=== PATIENT | female | born 1975 | race African-American/Black ===

== ENCOUNTER 2021-06-15 09:22 | Inpatient (IN) | payer OTHER ==
[~2021-06-15] VITALS: Ht 149.9 cm; Wt 64.4 kg
[2021-06-15 10:32] LABS: BASOPHILS % 0.4 % (0.0-2.0); EOSINOPHILS % 0.6 % (0.0-5.0); HEMATOCRIT. 40.9 % (36.0-48.0); HEMOGLOBIN. 14.1 g/dL (12.0-16.0); LYMPHOCYTES % 29.5 % (20.0-50.0); MEAN CORPUSCULAR HEMOGLOBIN 31.1 pg (28.0-32.0); MEAN CORPUSCULAR VOLUME 89.8 fL (81.0-99.0); MEAN PLATELET VOLUME 7.6 fl (7.4-10.4); MONOCYTES % 6.7 % (2.0-8.0); NEUTROPHILS % 62.8 % (40.0-76.0); PLATELET 267 x1000/uL (130-400); RED BLOOD CELL COUNT 4.55 mill/uL (4.2-5.4); RED CELL DISTRIBUTION WIDTH 12.6 % (11.6-14.6)
[2021-06-15 10:33] LABS: CLARITY URINE CLOUDY (CLEAR); COLOR URINE YELLOW (YELLOW); KETONES URINE NEGATIVE (NEGATIVE); LEUKOCYTE ESTERASE URINE NEGATIVE (NEGATIVE); NITRITE URINE NEGATIVE (NEGATIVE); OCCULT BLOOD URINE NEGATIVE (NEGATIVE); PROTEIN URINE NEGATIVE (NEGATIVE); SPECIFIC GRAVITY URINE 1.005 (1.005-1.030); UROBILINOGEN URINE 0.2 E.U./dL (0.2-1.0)
[2021-06-15 10:41] LABS: CHLORIDE 109 mEq/L (98-107)
[2021-06-15 10:45] LABS: ETHANOL BLOOD < 10 mg/dL
[2021-06-15 10:58] LABS: *AMPHETAMINES SCREEN URINE NEGATIVE (NEGATIVE); *BARBITURATES SCREEN URINE NEGATIVE (NEGATIVE); *BENZODIAZEPINES SCREEN URINE NEGATIVE (NEGATIVE); *COCAINE SCREEN URINE NEGATIVE (NEGATIVE); CANNABINOID URINE SCREEN NEGATIVE (NEGATIVE)
[2021-06-15 10:59] LABS: METHADONE URINE SCREEN NEGATIVE (NEGATIVE); OPIATES URINE SCREEN NEGATIVE (NEGATIVE); PHENCYCLIDINE URINE SCREEN NEGATIVE (NEGATIVE)
[2021-06-15] MEDS ORDERED: ASPIRIN 325MG EC TABLET PO ONE (11:30)
[2021-06-15] MEDS ORDERED: IPRATROPIUM/ALBUTEROL 0.5-3(2.5)MG/3ML NEB HHN PRN (12:00)
[2021-06-15] MEDS ORDERED: GUAIFENESIN 200MG/10ML SUGAR FREE UDC PO PRN (12:00)
[2021-06-15] MEDS ORDERED: CLONIDINE 0.1MG TABLET PO PRN (12:00)
[2021-06-15] MEDS ORDERED: ONDANSETRON HCL 4MG/2ML INJ IV PRN (12:00)
[2021-06-15] MEDS ORDERED: DOCUSATE SODIUM 100MG CAPSULE PO PRN (12:00)
[2021-06-15 13:44] LABS: FOLIC ACID (FOLATE) SERUM 18.7 ng/mL (>5.38)
[2021-06-15 15:19] VITALS: BP 113/59
[2021-06-15 15:40] VITALS: BP 110/71
[2021-06-15] MEDS: ENOXAPARIN 40MG/0.4ML SYR SUBCUT SCH (15:57)
[2021-06-15] MEDS: ACETAMINOPHEN 325MG TABLET PO PRN ×2 (15:57→22:05)
[2021-06-15] MEDS: CLOPIDOGREL 75MG TABLET PO SCH (15:59)
[2021-06-15] MEDS ORDERED: PNEUMOCOCCAL 23-VAL P-SAC VAC 0.5 ML IM ONE (17:00)
[2021-06-15 20:00] VITALS: BP 114/68
[2021-06-15] MEDS ORDERED: ATORVASTATIN CALCIUM 40MG TABLET PO SCH (21:00)
[2021-06-16] VITALS: BP 112/65
[2021-06-16 04:00] VITALS: BP 110/67
[2021-06-16 07:46] VITALS: BP 115/68
[2021-06-16 08:31] LABS: CHLORIDE 108 mEq/L (98-107)
[2021-06-16 08:32] LABS: BASOPHILS % 0.3 % (0.0-2.0); EOSINOPHILS % 0.8 % (0.0-5.0); HEMATOCRIT. 40.8 % (36.0-48.0); HEMOGLOBIN. 13.8 g/dL (12.0-16.0); LYMPHOCYTES % 31.9 % (20.0-50.0); MEAN CORPUSCULAR HEMOGLOBIN 30.5 pg (28.0-32.0); MEAN PLATELET VOLUME 7.5 fl (7.4-10.4); MONOCYTES % 9.4 % (2.0-8.0); NEUTROPHILS % 57.6 % (40.0-76.0); PLATELET 284 x1000/uL (130-400); RED BLOOD CELL COUNT 4.53 mill/uL (4.2-5.4); RED CELL DISTRIBUTION WIDTH 12.7 % (11.6-14.6)
[2021-06-16 08:37] LABS: LDL CHOLESTEROL 125 mg/dL (5-100)
[2021-06-16 08:39] LABS: HDL CHOLESTEROL 43 mg/dL (40-59)
[2021-06-16] MEDS ORDERED: ASPIRIN 81MG EC TABLET PO SCH (09:00)
[2021-06-16] MEDS: CLOPIDOGREL 75MG TABLET PO SCH (09:22)
[2021-06-16 12:00] VITALS: BP 112/64
[2021-06-16] MEDS ORDERED: ASPI-1406 PO (12:21)
[2021-06-16] MEDS ORDERED: ATOR10TA MT (12:21)
[2021-06-16 12:28] VITALS: BP_SYST 110; BP_SYST 112; BP_DIAS 64; BP_DIAS 66
[2021-06-16] MEDS: ENOXAPARIN 40MG/0.4ML SYR SUBCUT SCH ×2 (13:00→13:21)
== END 2021-06-16 15:09 | disposition home or self-care (01) | DRG 93 ==
LOC: ER 09:45 → EDBEDREQ 11:45 → 6WST 11:49 → ENRESERV 14:57
PROVIDERS: ADMIT Internal Medicine; ATTEND Internal Medicine
DX: R47.1 Dysarthria and anarthria (principal); R20.0 Anesthesia of skin; E78.00 Pure hypercholesterolemia, unspecified; E78.5 Hyperlipidemia, unspecified; Z86.73 Personal history of transient ischemic attack (TIA), and cerebral infarction without residual deficits; Z88.0 Allergy status to penicillin; Z88.2 Allergy status to sulfonamides
CPT/HCPCS: 36415; 70551; 71045; 80048; 80053; 80061; 80305; 80320; 81003; 82140; 82607; 82746; 83036; 84443; 84484; 85025; 90732; 93306; 97162; 97166; 99285; J1650; G0480